=== PATIENT | male | born 1990 | race Caucasian/White ===

== ENCOUNTER 2018-01-18 09:52 | Inpatient (IN) | payer OTHER ==
[2018-01-18 10:49] VITALS: BMI 30.6
--- NOTE | 2018-01-18 13:15 | HP ---
CIWA Score - CIWA Score Nausea/Vomitin Muscle Tremors: 3 Anxiety: 3 Agitation: 2 Paroxysmal Sweats: 3 Orientation: 0-Oriented Tacttile Disturbances: 0-None Auditory Disturbances: 0-None Visual Disturbances: 0-None Headache: 0-None Present CIWA-Ar Total Score: 14 Admission ROS S - HPI Chief Complaint: "Alcohol is becoming a problem for me, I need help stopping it" Allergies/Adverse Reactions: Allergies Allergy/AdvReac Type Severity Reaction Status Date / Time No Known Allergies Allergy Verified 01/18/18 12:18 History of Present Illness: 27 y/o male with 5 year history of alcohol dependence presents here to requesting alcohol detox. This is pt's first visit to [facility] detox, states his only episode with detox was at [facility]. stated he is here because he started to drink after he left the place. Denies recent ED visit for alcohol intox, states he is homeless and self- referred. Denies any med hx, takes Welbutrin for Depression, last taken a week ago s/p "I ran out". Denies previous nor curent SI. Exam Limitations: No Limitations - Ebola screening Have you traveled outside of the country in the last 21 days: No (N) Have you had contact with anyone from an Ebola affected area: No Have you been sick,other than usual withdrawal symptoms: No Do you have a fever: No - Review of Systems Constitutional: No Symptoms Reported EENT: reports: Recent change in vision (Far sightedness - wears glasses) Respiratory: reports: No Symptoms reported Cardiac: reports: No Symptoms Reported GI: reports: No Symptoms Reported : reports: No Symptoms Reported Musculoskeletal: reports: No Symptoms Reported Integumentary: reports: Dryness, Pruritus, Other (states he has heat rash) Neuro: reports: No Symptoms reported Endocrine: reports: No Symptoms Reported Hematology: reports: No Symptoms Reported Psychiatric: reports: Anxious, Depressed (denies SI) Other Systems: Reviewed and Negative Patient History - Patient Medical History Hx Anemia: No Hx Asthma: Yes (On albuterol) Hx Chronic Obstructive Pulmonary Disease (COPD): No Hx Cancer: No Hx Cardiac Disorders: No Hx Congestive Heart Failure: No Hx Hypertension: No Hx Hypercholesterolemia: No Hx Pacemaker: No HX Cerebrovascular Accident: No Hx Seizures: No Hx Dementia: No Hx Diabetes: No Hx Gastrointestinal Disorders: Yes (GERD Tx with OTC PRN) Hx Liver Disease: No Hx Genitourinary Disorders: No Hx Sexually Transmitted Disorders: No Hx Renal Disease (ESRD): No Hx Thyroid Disease: No Hx Human Immunodeficiency Virus (HIV): No (Last tested last month) Hx Hepatitis C: No Hx Depression: Yes (On Wellbutrin) Hx Suicide Attempt: No (denies) Hx Bipolar Disorder: No Hx Schizophrenia: No - Patient Surgical History Past Surgical History: No - PPD History Previous Implant?: Yes Documented Results: Negative w/o proof Implanted On Prior [facility] Admission?: No PPD to be Administered?: Yes - Reproductive History Patient is a Female of Child Bearing Age (11 -55 yrs old): No - Smoking Cessation Smoking history: Current every day smoker Have you smoked in the past 12 months: Yes Aproximately how many cigarettes per day: 10 Hx Chewing Tobacco Use: No Initiated information on smoking cessation: Yes 'Breaking Loose' booklet given: 01/18/18 - Substance & Tx. History Hx Alcohol Use: Yes Hx Substance Use: No Substance Use Type: Alcohol Hx Substance Use Treatment: Yes ([facility] - 01/2018) - Substances Abused Alcohol Route: Oral Frequency: Daily Amount used: 2 40oz Beer, 1/2 pint liquor ocassionally Age of first use: 15 Date of Last Use: 01/17/18 Family Disease History - Family Disease History Family Disease History: Other: Father (heroin, ) Admission Physical Exam BHS - Vital Signs Vital Signs: Vital Signs - 24 hr 01/18/18 10:46 Temperature 97.6 F Pulse Rate 92 H Respiratory 20 Rate Blood Pressure 130/81 - Physical General Appearance: Yes: Mild Distress, Anxious HEENTM: Yes: Other (wears glasses - on him) Respiratory: Yes: Lungs Clear, No Respiratory Distress Neck: Yes: No masses,lesions,Nodules, Trachea in good position Breast: Yes: Breast Exam Deferred Cardiology: Yes: Regular Rate Abdominal: Yes: Non Tender, Distended Genitourinary: Yes: Within Normal Limits Back: Yes: Normal Inspection Musculoskeletal: Yes: full range of Motion, Gait Steady Extremities: Yes: Normal Capillary Refill, Normal Inspection Neurological: Yes: Within Normal Limits Integumentary: Yes: Other (dry, scaly, itchy skin) - Diagnostic (1) Uncomplicated alcohol dependence Current Visit: Yes Status: Acute (2) Depression Current Visit: Yes Status: Suspected (3) Asthma Current Visit: Yes Status: Chronic (4) Nicotine dependence Current Visit: Yes Status: Chronic (5) Atopic dermatitis Current Visit: Yes Status: Chronic Cleared for Admission [facility] - Detox or Rehab [facility] Level of Care: Medically Managed Detox Regimen/Protocol: Librium S Breath Alcohol Content Breath Alcohol Content: 0.022 Urine Drug Screen - Results Drug Screen Negative: Yes
[2018-01-18] MEDS ORDERED: ALBUTEROL SO4 8 GM HFA INHALER IH PRN (13:34)
[2018-01-18] MEDS ORDERED: COLLOIDAL OATMEAL 1 BAR EACH TP PRN (13:35)
[2018-01-18] MEDS ORDERED: MAGNESIUM CITRATE 300 ML BOTTLE PO PRN (13:36)
[2018-01-18] MEDS ORDERED: IBUPROFEN 400 MG TABLET (FP) PO PRN (13:36)
[2018-01-18] MEDS ORDERED: ACETAMINOPHEN 325 MG TABLET (FP) PO PRN (13:36)
[2018-01-18] MEDS ORDERED: hydrOXYzine PAMOATE 50 MG CAPSULE (FP) PO PRN (13:36)
[2018-01-18] MEDS ORDERED: guaiFENesin/D-METHORPHAN HB 10 ML UNIT-DOSE CUPS PO PRN (13:36)
[2018-01-18] MEDS ORDERED: P-EPHED 60MG/TRIPROLIDI 2.5MG TABLET PO PRN (13:36)
[2018-01-18] MEDS ORDERED: chlordiazePOXIDE HCL 25 MG CAPSULE PO ONE (13:36)
[2018-01-18] MEDS ORDERED: chlordiazePOXIDE HCL 25 MG CAPSULE PO PRN (13:36)
[2018-01-18] MEDS ORDERED: MAGNESIUM HYDROX 2400MG/30ML ORAL SUSPENSION 30 ML CUP PO PRN (13:36)
[2018-01-18] MEDS ORDERED: MENTHOL/PHENOL 1 EACH UD MM PRN (13:36)
[2018-01-18] MEDS ORDERED: LOPERAMIDE HCL 2 MG CAPSULE PO PRN (13:36)
[2018-01-18] MEDS ORDERED: BACITRACIN 0.9 GM PACKET TP SCH (13:45)
[2018-01-18] MEDS: NICOTINE 21 MG/24 HOURS TOPICAL PATCH TD SCH (14:50)
[2018-01-18] MEDS: HYDROCORTISONE 1% TOPICAL CREAM 30 GM TUBE TP SCH ×2 (15:28→22:19)
[2018-01-18] MEDS: chlordiazePOXIDE HCL 25 MG CAPSULE PO SCH ×2 (17:57→22:17)
[2018-01-18 19:30] LABS: URINE APPEARANCE CLEAR; URINE BILIRUBIN NEGATIVE (<2.0 mg/dL); URINE COLOR LTYELLOW; URINE GLUCOSE (UA) NEGATIVE (NEGATIVE); URINE KETONE TRACE (NEGATIVE); URINE LEUK ESTERASE NEGATIVE (NEGATIVE); URINE NITRITE NEGATIVE (NEGATIVE); URINE PROTEIN NEGATIVE (NEGATIVE); URINE UROBILINOGEN NEGATIVE mg/dL (0.2-1.0)
[2018-01-18] MEDS: MELATONIN 5 MG TABLETS PO PRN (22:17)
[2018-01-18] MEDS: THIAMINE HCL 100 MG TABLET (FP) PO SCH (22:17)
[2018-01-19] MEDS: chlordiazePOXIDE HCL 25 MG CAPSULE PO SCH ×4 (05:40→22:21)
[2018-01-19 09:43] LABS: HEMATOCRIT 45.4 % (35.4-49); HEMOGLOBIN 15.4 GM/dL (11.7-16.9); MCH 30.5 pg (25.7-33.7); MCHC 33.9 g/dl (32.0-35.9); MEAN CELL VOLUME 90.2 fl (80-96); MEAN PLT VOLUME 9.7 fl (7.5-11.1); PLATELET COUNT 244 K/MM3 (134-434); RBC 5.04 M/mm3 (4.00-5.60); WHITE BLOOD COUNT 5.7 K/mm3 (4.0-10.0)
[2018-01-19] MEDS: HYDROCORTISONE 1% TOPICAL CREAM 30 GM TUBE TP SCH ×2 (10:14→22:23)
[2018-01-19] MEDS: NICOTINE 21 MG/24 HOURS TOPICAL PATCH TD SCH (10:14)
[2018-01-19] MEDS: PRENATAL VITAMINS W/ FOLIC ACID TABLET (FP) PO SCH (10:14)
[2018-01-19 10:27] LABS: CHLORIDE 107 mmol/L (98-107); POTASSIUM 4.2 mmol/L (3.5-5.1); SODIUM 139 mmol/L (136-145)
[2018-01-19 10:47] LABS: ALBUMIN 3.6 g/dl (3.4-5.0); ALK PHOS 65 U/L (45-117); ANION GAP 9 (8-16); BILIRUBIN,TOTAL 0.5 mg/dL (0.2-1.0); BLOOD UREA NITROGEN 11 mg/dL (7-18); CO2 23 mmol/L (21-32); GLUCOSE,RANDOM 83 mg/dL (74-106); SGOT/AST 16 U/L (15-37); SGPT/ALT 33 U/L (12-78); TOT PROT 6.9 g/dl (6.4-8.2)
[2018-01-19] MEDS ORDERED: PNEUMOC 13-VAL CONJ-DIP CRM/PF 0.5 ML DISP.SYRIN IM ONE (12:00)
--- NOTE | 2018-01-19 12:44 | CONSULT ---
[facility] Psychiatric Consult - Data Date of interview: 01/19/18 Admission source: [facility] Identifying data: First admission to [facility] for this 27 y/o male seeking detox treatment on for alcohol and cannabis dependence.Patient is single,father of one,homeless,unemployed and supported on Public Assistance. Substance Abuse History: Confirmed by the patient in this session.Smoking history: Current every day smoker. Have you smoked in the past 12 months: Yes. Aproximately how many cigarettes per day: 10. Hx Chewing Tobacco Use: No. Initiated information on smoking cessation: Yes. 'Breaking Loose' booklet given : 01/18/18. - Substance & Tx. History. Hx Alcohol Use: Yes. Hx Substance Use : No. Substance Use Type: Alcohol. Hx Substance Use Treatment: Yes ([facility] - 01/2018). - Substances Abused. Alcohol. Route: Oral. Frequency: Daily. Amount used: 2 40oz Beer, 1/2 pint liquor ocassionally. Age of first use: 15. Date of Last Use: 01/17/18 Medical History: GERD and bronchial asthma. Psychiatric History: Diagnosed with MDD and Anxiety Disorder.patient admits to one psychiatric hospitalization ([facility]) in 2004.Medicated with wellbutrin XL 300 mg/day.Non-adherent to his medication " for some time ".Sees a psychiatrist at the [facility] program in the [place].Mr Campbell denies history of suicide attempts. Physical/Sexual Abuse/Trauma History: Patient denies. Additional Comment: Drug Screen is negative. Mental Status Exam - Mental Status Exam Alert and Oriented to: Time, Place, Person Cognitive Function: Good Patient Appearance: Well Groomed Mood: Withdrawn Affect: Appropriate, Normal Range Patient Behavior: Fatigued, Appropriate, Cooperative Speech Pattern: Clear Voice Loudness: Normal Thought Process: Intact, Goal Oriented Thought Disorder: Not Present Hallucinations: Denies Suicidal Ideation: Denies Homicidal Ideation: Denies Insight/Judgement: Poor Sleep: Well Appetite: Good Muscle strength/Tone: Normal Gait/Station: Normal Psychiatric Findings - Problem List ([place] 1, 2,3) (1) Uncomplicated alcohol dependence Current Visit: Yes Status: Acute (2) Nicotine dependence Current Visit: Yes Status: Acute (3) Depressive disorder Current Visit: Yes Status: Chronic Comment: As per self-report.On medications.Followed at [facility] in the [place]. - Initial Treatment Plan Initial Treatment Plan: Psychoeducation.Sleep hygiene.Detoxification.Will resume wellbutrin XL 150 mg po daily (reduced dose).Made aware of risk of seizures.Patient agrees to this careplan.Observation.
--- NOTE | 2018-01-19 13:36 | EKG ---
Test Reason : Blood Pressure : / mmHG Vent. Rate : 074 BPM Atrial Rate : 074 BPM P-R Int : 166 ms QRS Dur : 100 ms QT Int : 386 ms P-R-T Axes : 060 055 037 degrees QTc Int : 428 ms SINUS RHYTHM WITH MARKED SINUS ARRHYTHMIA OTHERWISE NORMAL ECG NO PREVIOUS ECGS AVAILABLE Confirmed by JJ MARTIN MD ([id number]) on 01/19/2018 1:36:28 PM Referred By: Confirmed By:JJ MARTIN MD
--- NOTE | 2018-01-19 14:27 | PN ---
[facility] CIWA - CIWA Score Nausea/Vomitin Muscle Tremors: 2 Anxiety: 3 Agitation: 3 Paroxysmal Sweats: 3 Orientation: 0-Oriented Tacttile Disturbances: 0-None Auditory Disturbances: 0-None Visual Disturbances: 0-None Headache: 0-None Present CIWA-Ar Total Score: 14 S Progress Note (SOAP) Subjective: sweats shakes sleep disturbance itchy Objective: 01/19/18 14:24 A & O x 3 gait steady Vital Signs Temperature 97.1 F L 01/19/18 10:47 Pulse Rate 93 H 01/19/18 10:47 Respiratory Rate 20 01/19/18 10:47 Blood Pressure 113/69 01/19/18 10:47 O2 Sat by Pulse Oximetry (%) Laboratory Last Values WBC 5.7 K/mm3 (4.0-10.0) 01/19/18 07:00 RBC 5.04 M/mm3 (4.00-5.60) 01/19/18 07:00 Hgb 15.4 GM/dL (11.7-16.9) 01/19/18 07:00 Hct 45.4 % (35.4-49) 01/19/18 07:00 MCV 90.2 fl (80-96) 01/19/18 07:00 MCH 30.5 pg (25.7-33.7) 01/19/18 07:00 MCHC 33.9 g/dl (32.0-35.9) 01/19/18 07:00 RDW 13.0 % (11.9-15.9) 01/19/18 07:00 Plt Count 244 K/MM3 (134-434) 01/19/18 07:00 MPV 9.7 fl (7.5-11.1) 01/19/18 07:00 Sodium 139 mmol/L (136-145) 01/19/18 07:30 Potassium 4.2 mmol/L (3.5-5.1) 01/19/18 07:30 Chloride 107 mmol/L (98-107) 01/19/18 07:30 Carbon Dioxide 23 mmol/L (21-32) 01/19/18 07:30 Anion Gap 9 (8-16) 01/19/18 07:30 BUN 11 mg/dL (7-18) 01/19/18 07:30 Creatinine 1.0 mg/dL (0.7-1.3) 01/19/18 07:30 Creat Clearance w eGFR > 60 (>60) 01/19/18 07:30 Random Glucose 83 mg/dL (74-106) 01/19/18 07:30 Calcium 9.0 mg/dL (8.5-10.1) 01/19/18 07:30 Total Bilirubin 0.5 mg/dL (0.2-1.0) 01/19/18 07:30 AST 16 U/L (15-37) 01/19/18 07:30 ALT 33 U/L (12-78) 01/19/18 07:30 Alkaline Phosphatase 65 U/L (45-117) 01/19/18 07:30 Total Protein 6.9 g/dl (6.4-8.2) 01/19/18 07:30 Albumin 3.6 g/dl (3.4-5.0) 01/19/18 07:30 Urine Color Ltyellow 01/18/18 15:16 Urine Appearance Clear 01/18/18 15:16 Urine pH 5.0 (5.0-8.0) 01/18/18 15:16 Ur Specific [place] 1.023 (1.001-1.035) 01/18/18 15:16 Urine Protein Negative (NEGATIVE) 01/18/18 15:16 Urine Glucose (UA) Negative (NEGATIVE) 01/18/18 15:16 Urine Ketones Trace (NEGATIVE) H 01/18/18 15:16 Urine Blood Negative (NEGATIVE) 01/18/18 15:16 Urine Nitrite Negative (NEGATIVE) 01/18/18 15:16 Urine Bilirubin Negative (<2.0 mg/dL) 01/18/18 15:16 Urine Urobilinogen Negative mg/dL (0.2-1.0) 01/18/18 15:16 Ur Leukocyte Esterase Negative (NEGATIVE) 01/18/18 15:16 RPR Titer Nonreactive (NONREACTIVE) 01/19/18 07:00 Labs noted Assessment: 01/19/18 14:27 withdrawal sx Plan: continue detox increase water hydration
[2018-01-19] MEDS: MELATONIN 5 MG TABLETS PO PRN (22:21)
[2018-01-19] MEDS: THIAMINE HCL 100 MG TABLET (FP) PO SCH (22:21)
[2018-01-20] MEDS: chlordiazePOXIDE HCL 25 MG CAPSULE PO SCH ×2 (05:15→10:16)
[2018-01-20] MEDS: NICOTINE 21 MG/24 HOURS TOPICAL PATCH TD SCH (10:15)
[2018-01-20] MEDS: PRENATAL VITAMINS W/ FOLIC ACID TABLET (FP) PO SCH (10:15)
[2018-01-20] MEDS: LORATADINE 10 MG TABLET PO SCH (10:18)
[2018-01-20] MEDS: HYDROCORTISONE 1% TOPICAL CREAM 30 GM TUBE TP SCH (10:18)
--- NOTE | 2018-01-20 12:40 | PN ---
S CIWA - CIWA Score Nausea/Vomitin-No Nausea/No Vomiting Muscle Tremors: None Anxiety: 4-Mod. Anxious/Guarded Agitation: 2 Paroxysmal Sweats: 3 Orientation: 0-Oriented Tacttile Disturbances: 3-Moderate Itch/Numb/Burn Auditory Disturbances: 0-None Visual Disturbances: 2-Mild Sensitivity Headache: 0-None Present CIWA-Ar Total Score: 14 BHS Progress Note (SOAP) Subjective: Sweating, Anxious, Itching. Objective: PATIENT A & O X 3, OBSERVED AMBULATING ON UNIT. NO ACUTE DISTRESS. 01/20/18 12:37 Vital Signs Temperature 97.3 F L 01/20/18 09:28 Pulse Rate 86 01/20/18 09:28 Respiratory Rate 18 01/20/18 09:28 Blood Pressure 106/64 01/20/18 09:28 O2 Sat by Pulse Oximetry (%) Laboratory Tests 01/18/18 01/19/18 01/19/18 15:16 07:00 07:00 WBC 5.7 RBC 5.04 Hgb 15.4 Hct 45.4 MCV 90.2 MCH 30.5 MCHC 33.9 RDW 13.0 Plt Count 244 MPV 9.7 Sodium Potassium Chloride Carbon Dioxide Anion Gap BUN Creatinine Creat Clearance w eGFR Random Glucose Calcium Total Bilirubin AST ALT Alkaline Phosphatase Total Protein Albumin Urine Color Ltyellow Urine Appearance Clear Urine pH 5.0 Ur Specific [place] 1.023 Urine Protein Negative Urine Glucose (UA) Negative Urine Ketones Trace H Urine Blood Negative Urine Nitrite Negative Urine Bilirubin Negative Urine Urobilinogen Negative Ur Leukocyte Esterase Negative RPR Titer Nonreactive 01/19/18 07:30 WBC RBC Hgb Hct MCV MCH MCHC RDW Plt Count MPV Sodium 139 Potassium 4.2 Chloride 107 Carbon Dioxide 23 Anion Gap 9 BUN 11 Creatinine 1.0 Creat Clearance w eGFR > 60 Random Glucose 83 Calcium 9.0 Total Bilirubin 0.5 AST 16 ALT 33 Alkaline Phosphatase 65 Total Protein 6.9 Albumin 3.6 Urine Color Urine Appearance Urine pH Ur Specific [place] Urine Protein Urine Glucose (UA) Urine Ketones Urine Blood Urine Nitrite Urine Bilirubin Urine Urobilinogen Ur Leukocyte Esterase RPR Titer LABS NOTED. Assessment: 01/20/18 12:39 WITHDRAWAL SYMPTOMS. Plan: CONTINUE DETOX. INCREASE DAILY PO FLUID INTAKE. TOPICAL BENADRYL CREAM FOR ITCHING.
[2018-01-20] MEDS: MAG HYDROX/AL HYDROX/SIMETH 30 ML UNIT-DOSE CUP PO PRN ×2 (14:52→23:41)
[2018-01-20] MEDS: chlordiazePOXIDE 5 MG CAPSULE PO SCH ×2 (17:15→22:11)
[2018-01-20] MEDS: MELATONIN 5 MG TABLETS PO PRN (22:11)
[2018-01-20] MEDS: THIAMINE HCL 100 MG TABLET (FP) PO SCH (22:11)
[2018-01-21] MEDS: chlordiazePOXIDE 5 MG CAPSULE PO SCH ×2 (05:13→10:27)
[2018-01-21] MEDS: MAG HYDROX/AL HYDROX/SIMETH 30 ML UNIT-DOSE CUP PO PRN ×3 (05:14→18:20)
[2018-01-21] MEDS: LORATADINE 10 MG TABLET PO SCH (10:27)
[2018-01-21] MEDS: PRENATAL VITAMINS W/ FOLIC ACID TABLET (FP) PO SCH (10:27)
[2018-01-21] MEDS: NICOTINE 21 MG/24 HOURS TOPICAL PATCH TD SCH (10:27)
--- NOTE | 2018-01-21 14:08 | PN ---
BHS Progress Note (SOAP) Subjective: Constipation, Itching (Patient Reports that Benadryl Cream has been helpful for itching on forearms thus far). Objective: PATIENT A & O X 3, OBSERVED AMBULATING ON UNIT. NO ACUTE DISTRESS. 01/21/18 14:07 Vital Signs Temperature 98.5 F 01/21/18 13:54 Pulse Rate 86 01/21/18 13:54 Respiratory Rate 20 01/21/18 13:54 Blood Pressure 98/60 01/21/18 13:54 O2 Sat by Pulse Oximetry (%) Laboratory Tests 01/18/18 01/19/18 01/19/18 15:16 07:00 07:00 WBC 5.7 RBC 5.04 Hgb 15.4 Hct 45.4 MCV 90.2 MCH 30.5 MCHC 33.9 RDW 13.0 Plt Count 244 MPV 9.7 Sodium Potassium Chloride Carbon Dioxide Anion Gap BUN Creatinine Creat Clearance w eGFR Random Glucose Calcium Total Bilirubin AST ALT Alkaline Phosphatase Total Protein Albumin Urine Color Ltyellow Urine Appearance Clear Urine pH 5.0 Ur Specific [place] 1.023 Urine Protein Negative Urine Glucose (UA) Negative Urine Ketones Trace H Urine Blood Negative Urine Nitrite Negative Urine Bilirubin Negative Urine Urobilinogen Negative Ur Leukocyte Esterase Negative RPR Titer Nonreactive 01/19/18 07:30 WBC RBC Hgb Hct MCV MCH MCHC RDW Plt Count MPV Sodium 139 Potassium 4.2 Chloride 107 Carbon Dioxide 23 Anion Gap 9 BUN 11 Creatinine 1.0 Creat Clearance w eGFR > 60 Random Glucose 83 Calcium 9.0 Total Bilirubin 0.5 AST 16 ALT 33 Alkaline Phosphatase 65 Total Protein 6.9 Albumin 3.6 Urine Color Urine Appearance Urine pH Ur Specific [place] Urine Protein Urine Glucose (UA) Urine Ketones Urine Blood Urine Nitrite Urine Bilirubin Urine Urobilinogen Ur Leukocyte Esterase RPR Titer LABS NOTED. Assessment: 01/21/18 14:07 WITHDRAWAL SYMPTOMS. Plan: CONTINUE DETOX. INCREASE DAILY PO FLUID INTAKE. PRN MOM FOR CONSTIPATION. PATIENT SCHEDULED FOR D/C TOMORROW.
[2018-01-21] MEDS: chlordiazePOXIDE HCL 10 MG CAPSULE PO SCH ×2 (17:24→22:17)
[2018-01-21] MEDS: THIAMINE HCL 100 MG TABLET (FP) PO SCH (22:16)
[2018-01-21] MEDS: MELATONIN 5 MG TABLETS PO PRN (22:17)
[2018-01-22] MEDS: chlordiazePOXIDE HCL 10 MG CAPSULE PO SCH (05:10)
[2018-01-22] MEDS: LORATADINE 10 MG TABLET PO SCH (09:23)
[2018-01-22 10:19] VITALS: BP 116/77; PULSE 108; TEMP 97.3
--- NOTE | 2018-01-22 15:03 | PN ---
BHS Progress Note (SOAP) Subjective: Patient denies current Detox symptoms and reports that he feels well overall. Objective: PATIENT A & O X 3, OBSERVED AMBULATING ON UNIT. NO ACUTE DISTRESS. 01/22/18 15:02 Vital Signs Temperature 97.3 F L 01/22/18 09:00 Pulse Rate 108 H 01/22/18 09:00 Respiratory Rate 20 01/22/18 09:00 Blood Pressure 116/77 01/22/18 09:00 O2 Sat by Pulse Oximetry (%) Laboratory Tests 01/18/18 01/19/18 01/19/18 15:16 07:00 07:00 WBC 5.7 RBC 5.04 Hgb 15.4 Hct 45.4 MCV 90.2 MCH 30.5 MCHC 33.9 RDW 13.0 Plt Count 244 MPV 9.7 Sodium Potassium Chloride Carbon Dioxide Anion Gap BUN Creatinine Creat Clearance w eGFR Random Glucose Calcium Total Bilirubin AST ALT Alkaline Phosphatase Total Protein Albumin Urine Color Ltyellow Urine Appearance Clear Urine pH 5.0 Ur Specific [place] 1.023 Urine Protein Negative Urine Glucose (UA) Negative Urine Ketones Trace H Urine Blood Negative Urine Nitrite Negative Urine Bilirubin Negative Urine Urobilinogen Negative Ur Leukocyte Esterase Negative RPR Titer Nonreactive 01/19/18 07:30 WBC RBC Hgb Hct MCV MCH MCHC RDW Plt Count MPV Sodium 139 Potassium 4.2 Chloride 107 Carbon Dioxide 23 Anion Gap 9 BUN 11 Creatinine 1.0 Creat Clearance w eGFR > 60 Random Glucose 83 Calcium 9.0 Total Bilirubin 0.5 AST 16 ALT 33 Alkaline Phosphatase 65 Total Protein 6.9 Albumin 3.6 Urine Color Urine Appearance Urine pH Ur Specific [place] Urine Protein Urine Glucose (UA) Urine Ketones Urine Blood Urine Nitrite Urine Bilirubin Urine Urobilinogen Ur Leukocyte Esterase RPR Titer LABS NOTED. Assessment: 01/22/18 15:02 COMPLETION OF DETOX REGIMEN. 01/22/18 15:03 Plan: PATIENT SCHEDULED FOR DISCHARGE FROM DETOX UNIT TODAY.
--- NOTE | 2018-01-22 15:07 | DS ---
[facility] Detox Discharge Summary Admission Date: 01/18/18 Discharge Date: 01/22/18 - History Present History: Alcohol Dependence, Cocaine Dependence Additional Comments: PATIENT WILL RETURN HOME FOR A DAYS TO ATTEND TO PERSONAL / FAMILY ISSUES, THEN WILL RETURN TO APPLY FOR ADMISSION TO [facility]. PATIENT WAS DISCHARGED FROM DETOX UNIT IN STABLE MEDICAL CONDITION. Pertinent Past History: Nicotine Dependence, Depression, Asthma, Atopic Dermatitis. - Physical Exam Results Vital Signs: Vital Signs Temperature 97.3 F L 01/22/18 09:00 Pulse Rate 108 H 01/22/18 09:00 Respiratory Rate 20 01/22/18 09:00 Blood Pressure 116/77 01/22/18 09:00 O2 Sat by Pulse Oximetry (%) Pertinent Admission Physical Exam Findings: WITHDRAWAL SYMPTOMS. Laboratory Tests 01/18/18 01/19/18 01/19/18:16 07:00 07:00 WBC 5.7 RBC 5.04 Hgb 15.4 Hct 45.4 MCV 90.2 MCH 30.5 MCHC 33.9 RDW 13.0 Plt Count 244 MPV 9.7 Sodium Potassium Chloride Carbon Dioxide Anion Gap BUN Creatinine Creat Clearance w eGFR Random Glucose Calcium Total Bilirubin AST ALT Alkaline Phosphatase Total Protein Albumin Urine Color Ltyellow Urine Appearance Clear Urine pH 5.0 Ur Specific [place] 1.023 Urine Protein Negative Urine Glucose (UA) Negative Urine Ketones Trace H Urine Blood Negative Urine Nitrite Negative Urine Bilirubin Negative Urine Urobilinogen Negative Ur Leukocyte Esterase Negative RPR Titer Nonreactive 01/19/18 07:30 WBC RBC Hgb Hct MCV MCH MCHC RDW Plt Count MPV Sodium 139 Potassium 4.2 Chloride 107 Carbon Dioxide 23 Anion Gap 9 BUN 11 Creatinine 1.0 Creat Clearance w eGFR > 60 Random Glucose 83 Calcium 9.0 Total Bilirubin 0.5 AST 16 ALT 33 Alkaline Phosphatase 65 Total Protein 6.9 Albumin 3.6 Urine Color Urine Appearance Urine pH Ur Specific [place] Urine Protein Urine Glucose (UA) Urine Ketones Urine Blood Urine Nitrite Urine Bilirubin Urine Urobilinogen Ur Leukocyte Esterase RPR Titer LABS NOTED. - Treatment Hospital Course: Detox Protocol Followed, Detoxed Safely, Responded well, Discharged Condition Good, Rehab Referral Accepted Patient has Accepted a Re[facility] Referral to[facility] ([facility]) . - Medication Discharge Medications: Ambulatory Orders Albuterol Sulfate Inhaler - [Ventolin Hfa Inhaler -] 2 inh PO Q4H PRN 01/18/18 Bupropion HCl [Wellbutrin Xl] 300 mg PO 01/18/18 - Diagnosis (1) Alcohol dependence with uncomplicated withdrawal Status: Acute (2) Nicotine dependence Status: Acute Qualifiers: Nicotine product type: cigarettes Substance use status: uncomplicated Qualified Code(s): F17.210 - Nicotine dependence, cigarettes, uncomplicated (3) Asthma Status: Chronic Qualifiers: Asthma severity: mild Asthma persistence: intermittent Asthma complication type: uncomplicated Qualified Code(s): J45.20 - Mild intermittent asthma, uncomplicated (4) Atopic dermatitis Status: Chronic Qualifiers: Atopic dermatitis type: unspecified Qualified Code(s): L20.9 - Atopic dermatitis, unspecified (5) Depression Status: Suspected Qualifiers: Depression Type: unspecified Qualified Code(s): F32.9 - Major depressive disorder, single episode, unspecified - AMA Did Patient Leave Against Medical Advice: No
== END 2018-01-22 09:25 | disposition home or self-care (01) | DRG 775 ==
LOC: YASAS 09:52 → Y3N 13:37
PROVIDERS: ADMIT Surgery; ATTEND Surgery
PROC: HZ2ZZZZ Detoxification Services for Substance Abuse Treatment (ICD-10-PCS; principal; 2018-01-18)
DX: F10.230 Alcohol dependence with withdrawal, uncomplicated (principal); F17.210 Nicotine dependence, cigarettes, uncomplicated; F32.9 Major depressive disorder, single episode, unspecified; J45.20 Mild intermittent asthma, uncomplicated; K21.9 Gastro-esophageal reflux disease without esophagitis; L20.9 Atopic dermatitis, unspecified
CPT/HCPCS: 36415; 80053; 81003; 85027; 86593; 93005; 93010

== ENCOUNTER 2020-12-29 11:08 | Inpatient (IN) | payer OTHER ==
[2020-12-29 11:37] VITALS: BMI 36.1
[2020-12-29] MEDS ORDERED: METHOCARBAMOL 500 MG TABLET PO PRN (12:24)
[2020-12-29] MEDS ORDERED: ONDANSETRON *ODT* 4 MG TABLET SL PRN (12:24)
[2020-12-29] MEDS ORDERED: diazePAM 5 MG TABLET PO PRN (12:24)
[2020-12-29] MEDS ORDERED: NICOTINE POLACRILEX 2 MG GUM BUC PRN (12:24)
[2020-12-29] MEDS ORDERED: ACETAMINOPHEN 325 MG TABLET (FP) PO PRN ×2 (12:24)
[2020-12-29] MEDS ORDERED: MAGNESIUM CITRATE 300 ML BOTTLE PO PRN (12:24)
[2020-12-29] MEDS ORDERED: BISMUTH SUBSALICYLATE 262 MG/15 ML BTL PO PRN (12:24)
[2020-12-29] MEDS ORDERED: IBUPROFEN 400 MG TABLET (FP) PO PRN (12:24)
[2020-12-29] MEDS ORDERED: MAGNESIUM HYDROX 2400MG/30ML ORAL SUSPENSION 30 ML CUP PO PRN (12:24)
[2020-12-29] MEDS ORDERED: MAG HYDROX/AL HYDROX/SIMETH 30 ML UNIT-DOSE CUP PO PRN (12:24)
[2020-12-29] MEDS ORDERED: MENTHOL/PHENOL 1 EACH UD MM PRN (12:24)
[2020-12-29] MEDS ORDERED: ALBUTEROL SO4 HFA INHALER IH PRN (12:25)
[2020-12-29] MEDS: NICOTINE 14 MG/24 HOURS TOPICAL PATCH TD SCH (13:33)
[2020-12-29] MEDS: diazePAM 5 MG TABLET PO SCH ×3 (13:34→22:17)
[2020-12-29] MEDS: PRENATAL VITAMINS W/ FOLIC ACID TABLET (FP) PO SCH (13:34)
[2020-12-29] MEDS: hydrOXYzine PAMOATE 25 MG CAPSULE (FP) PO SCH ×3 (13:35→22:17)
[2020-12-29 15:13] LABS: HEMATOCRIT 44.9 % (35.4-49); HEMOGLOBIN 15.2 GM/dL (11.7-16.9); MCH 30.8 pg (25.7-33.7); MCHC 33.9 g/dl (32.0-35.9); MEAN CELL VOLUME 90.9 fl (80-96); MEAN PLT VOLUME 10.2 fl (7.5-11.1); PLATELET COUNT 178 10^3/uL (134-434); RBC 4.93 M/mm3 (4.00-5.60); RDW 13.3 % (11.9-15.9); WHITE BLOOD COUNT 6.2 K/mm3 (4.0-10.0)
[2020-12-29 15:43] LABS: ALBUMIN 3.5 g/dl (3.4-5.0); BLOOD UREA NITROGEN 12.8 mg/dL (7-18); CALCIUM 9.3 mg/dL (8.5-10.1)
[2020-12-29 15:47] LABS: CREATININE 1.1 mg/dL (0.55-1.3)
[2020-12-29 15:48] LABS: BILIRUBIN,TOTAL 0.4 mg/dL (0.2-1); TOT PROT 6.7 g/dl (6.4-8.2)
[2020-12-29 16:14] LABS: HIV INTERPRETATION NEGATIVE (NEGATIVE)
[2020-12-29] MEDS: MELATONIN 5 MG TABLETS PO SCH (22:17)
[2020-12-29] MEDS: THIAMINE HCL 100 MG TABLET (FP) PO SCH (22:17)
[2020-12-30] MEDS: hydrOXYzine PAMOATE 25 MG CAPSULE (FP) PO SCH ×5 (05:13→22:22)
[2020-12-30] MEDS: diazePAM 5 MG TABLET PO SCH ×4 (05:13→22:22)
[2020-12-30] MEDS: PRENATAL VITAMINS W/ FOLIC ACID TABLET (FP) PO SCH (10:16)
[2020-12-30] MEDS: NICOTINE 14 MG/24 HOURS TOPICAL PATCH TD SCH (10:16)
[2020-12-30] MEDS: MELATONIN 5 MG TABLETS PO SCH (22:22)
[2020-12-30] MEDS: THIAMINE HCL 100 MG TABLET (FP) PO SCH (22:22)
[2020-12-31] MEDS: hydrOXYzine PAMOATE 25 MG CAPSULE (FP) PO SCH ×5 (05:53→22:27)
[2020-12-31] MEDS: diazePAM 5 MG TABLET PO SCH ×3 (05:54→22:26)
[2020-12-31] MEDS: NICOTINE 14 MG/24 HOURS TOPICAL PATCH TD SCH (10:08)
[2020-12-31] MEDS: PRENATAL VITAMINS W/ FOLIC ACID TABLET (FP) PO SCH (10:08)
[2020-12-31] MEDS: THIAMINE HCL 100 MG TABLET (FP) PO SCH (22:27)
[2020-12-31] MEDS: MELATONIN 5 MG TABLETS PO SCH (22:27)
[2021-01-01] MEDS: hydrOXYzine PAMOATE 25 MG CAPSULE (FP) PO SCH ×5 (05:15→22:13)
[2021-01-01] MEDS: diazePAM 5 MG TABLET PO SCH ×2 (05:15→17:36)
[2021-01-01] MEDS: NICOTINE 14 MG/24 HOURS TOPICAL PATCH TD SCH (10:07)
[2021-01-01] MEDS: PRENATAL VITAMINS W/ FOLIC ACID TABLET (FP) PO SCH (10:07)
[2021-01-01] MEDS: THIAMINE HCL 100 MG TABLET (FP) PO SCH (22:13)
[2021-01-01] MEDS: MELATONIN 5 MG TABLETS PO SCH (22:13)
[2021-01-02] MEDS: hydrOXYzine PAMOATE 25 MG CAPSULE (FP) PO SCH (05:06)
[2021-01-02] MEDS ORDERED: diazePAM 5 MG TABLET PO ONE (06:00)
[2021-01-02 09:03] VITALS: BP 109/69; PULSE 89; TEMP 96.9
== END 2021-01-02 09:39 | disposition home or self-care (01) | DRG 774 ==
LOC: YASAS 11:08 → Y3N 11:52
PROVIDERS: ADMIT Allergy & Immunology; ATTEND Allergy & Immunology
PROC: HZ2ZZZZ Detoxification Services for Substance Abuse Treatment (ICD-10-PCS; principal; 2020-12-29)
DX: F10.230 Alcohol dependence with withdrawal, uncomplicated (principal); F14.20 Cocaine dependence, uncomplicated; F17.210 Nicotine dependence, cigarettes, uncomplicated; F19.24 Other psychoactive substance dependence with psychoactive substance-induced mood disorder; J45.20 Mild intermittent asthma, uncomplicated; K21.9 Gastro-esophageal reflux disease without esophagitis; L20.9 Atopic dermatitis, unspecified; E66.9 Obesity, unspecified; Z68.36 Body mass index [BMI] 36.0-36.9, adult; Z91.14 Patient's other noncompliance with medication regimen
CPT/HCPCS: 36415; 80053; 85027; 86780; 87389; C9803; U0003; U0005

== ENCOUNTER 2021-03-09 15:41 | Inpatient (IN) | payer OTHER ==
[2021-03-09 16:30] VITALS: BMI 34.1
[2021-03-09] MEDS ORDERED: diazePAM 5 MG TABLET PO PRN (16:52)
[2021-03-09] MEDS ORDERED: hydrOXYzine PAMOATE 25 MG CAPSULE (FP) PO PRN (16:53)
[2021-03-09] MEDS ORDERED: IBUPROFEN 400 MG TABLET (FP) PO PRN (16:53)
[2021-03-09] MEDS ORDERED: MAG HYDROX/AL HYDROX/SIMETH 30 ML UNIT-DOSE CUP PO PRN (16:53)
[2021-03-09] MEDS ORDERED: ACETAMINOPHEN 325 MG TABLET (FP) PO PRN ×2 (16:53)
[2021-03-09] MEDS ORDERED: MENTHOL/PHENOL 1 EACH UD MM PRN (16:53)
[2021-03-09] MEDS ORDERED: MAGNESIUM HYDROX 2400MG/30ML ORAL SUSPENSION 30 ML CUP PO PRN (16:53)
[2021-03-09] MEDS ORDERED: MAGNESIUM CITRATE 300 ML BOTTLE PO PRN (16:53)
[2021-03-09] MEDS ORDERED: BISMUTH SUBSALICYLATE 524 MG/30 ML PO PRN (16:53)
[2021-03-09] MEDS ORDERED: METHOCARBAMOL 500 MG TABLET PO PRN (16:53)
[2021-03-09] MEDS ORDERED: ONDANSETRON *ODT* 4 MG TABLET SL PRN (16:53)
[2021-03-09] MEDS ORDERED: NICOTINE 10 MG CARTRIDGE (INHALER) IH PRN (16:53)
[2021-03-09] MEDS ORDERED: ALBUTEROL SO4 HFA INHALER IH PRN (16:56)
[2021-03-09] MEDS: diazePAM 5 MG TABLET PO SCH ×2 (22:10→22:37)
[2021-03-09] MEDS: MELATONIN 5 MG TABLETS PO SCH (22:37)
[2021-03-09] MEDS: THIAMINE HCL 100 MG TABLET (FP) PO SCH (22:37)
[2021-03-10] MEDS: diazePAM 5 MG TABLET PO SCH ×4 (05:22→22:21)
[2021-03-10] MEDS: PRENATAL VITAMINS W/ FOLIC ACID TABLET (FP) PO SCH (11:14)
[2021-03-10 15:26] LABS: HEMATOCRIT 42.5 % (35.4-49); HEMOGLOBIN 14.6 GM/dL (11.7-16.9); MCH 31.4 pg (25.7-33.7); MCHC 34.4 g/dl (32.0-35.9); MEAN CELL VOLUME 91.2 fl (80-96); MEAN PLT VOLUME 10.2 fl (7.5-11.1); PLATELET COUNT 134 10^3/uL (134-434); RBC 4.66 M/mm3 (4.00-5.60); RDW 13.8 % (11.9-15.9); WHITE BLOOD COUNT 5.7 K/mm3 (4.0-10.0)
[2021-03-10 15:28] LABS: BLOOD UREA NITROGEN 12.1 mg/dL (7-18); CALCIUM 8.6 mg/dL (8.5-10.1)
[2021-03-10 15:32] LABS: BILIRUBIN,TOTAL 0.7 mg/dL (0.2-1)
[2021-03-10 16:19] LABS: HIV INTERPRETATION NEGATIVE (NEGATIVE)
[2021-03-10] MEDS: THIAMINE HCL 100 MG TABLET (FP) PO SCH (22:20)
[2021-03-10] MEDS: MELATONIN 5 MG TABLETS PO SCH (22:20)
[2021-03-11] MEDS: diazePAM 5 MG TABLET PO SCH ×3 (06:24→22:34)
[2021-03-11] MEDS: PRENATAL VITAMINS W/ FOLIC ACID TABLET (FP) PO SCH (11:19)
[2021-03-11] MEDS: MELATONIN 5 MG TABLETS PO SCH (22:34)
[2021-03-11] MEDS: THIAMINE HCL 100 MG TABLET (FP) PO SCH (22:34)
[2021-03-12] MEDS: diazePAM 5 MG TABLET PO SCH ×2 (07:10→18:10)
[2021-03-12] MEDS: PRENATAL VITAMINS W/ FOLIC ACID TABLET (FP) PO SCH (10:45)
[2021-03-12] MEDS ORDERED: HYDROCORTISONE 1% TOPICAL CREAM 30 GM TUBE TP PRN (13:13)
[2021-03-12] MEDS: THIAMINE HCL 100 MG TABLET (FP) PO SCH (22:23)
[2021-03-12] MEDS: MELATONIN 5 MG TABLETS PO SCH (22:23)
[2021-03-13] MEDS ORDERED: diazePAM 5 MG TABLET PO ONE (06:00)
[2021-03-13 09:34] VITALS: BP 117/70; PULSE 80; TEMP 96.8
== END 2021-03-13 10:49 | disposition home or self-care (01) | DRG 774 ==
LOC: YASAS 15:41 → Y6N 21:21 → Y3N 03-11 15:39
PROVIDERS: ADMIT Allergy & Immunology; ATTEND Allergy & Immunology
PROC: HZ2ZZZZ Detoxification Services for Substance Abuse Treatment (ICD-10-PCS; principal; 2021-03-09)
DX: F10.230 Alcohol dependence with withdrawal, uncomplicated (principal); F14.10 Cocaine abuse, uncomplicated; F17.210 Nicotine dependence, cigarettes, uncomplicated; J45.20 Mild intermittent asthma, uncomplicated; L20.9 Atopic dermatitis, unspecified
CPT/HCPCS: 36415; 80053; 85027; 86780; 87389; C9803; U0003; U0005

== ENCOUNTER 2021-07-24 12:00 | Inpatient (IN) | payer OTHER ==
[2021-07-24] MEDS ORDERED: MAGNESIUM HYDROX 2400MG/30ML ORAL SUSPENSION 30 ML CUP PO PRN (12:05)
[2021-07-24] MEDS ORDERED: IBUPROFEN 400 MG TABLET (FP) PO PRN (12:05)
[2021-07-24] MEDS ORDERED: BISMUTH SUBSALICYLATE 262 MG/15 ML BTL PO PRN (12:05)
[2021-07-24] MEDS ORDERED: NICOTINE 10 MG CARTRIDGE (INHALER) IH PRN (12:05)
[2021-07-24] MEDS ORDERED: MAG HYDROX/AL HYDROX/SIMETH 30 ML UNIT-DOSE CUP PO PRN (12:05)
[2021-07-24] MEDS ORDERED: MAGNESIUM CITRATE 300 ML BOTTLE PO PRN (12:05)
[2021-07-24] MEDS ORDERED: chlordiazePOXIDE HCL 25 MG CAPSULE PO PRN (12:05)
[2021-07-24] MEDS ORDERED: ONDANSETRON *ODT* 4 MG TABLET SL PRN (12:05)
[2021-07-24] MEDS ORDERED: MENTHOL/PHENOL 1 EACH UD MM PRN (12:05)
[2021-07-24] MEDS ORDERED: ACETAMINOPHEN 325 MG TABLET (FP) PO PRN ×2 (12:05)
[2021-07-24] MEDS ORDERED: ALBUTEROL SO4 HFA INHALER IH PRN (12:07)
[2021-07-24] MEDS: NICOTINE 14 MG/24 HOURS TOPICAL PATCH TD SCH (13:39)
[2021-07-24] MEDS: hydrOXYzine PAMOATE 25 MG CAPSULE (FP) PO SCH ×3 (13:39→22:47)
[2021-07-24] MEDS: PRENATAL VITAMINS W/ FOLIC ACID TABLET (FP) PO SCH (13:39)
[2021-07-24 16:37] VITALS: BMI 71.5
[2021-07-24] MEDS: chlordiazePOXIDE HCL 25 MG CAPSULE PO SCH ×2 (17:21→22:47)
[2021-07-24 17:33] LABS: HEMOGLOBIN 15.4 GM/dL (11.7-16.9); MCH 30.1 pg (25.7-33.7); MCHC 32.8 g/dl (32.0-35.9); MEAN CELL VOLUME 91.7 fl (80-96); MEAN PLT VOLUME 10.4 fl (7.5-11.1); PLATELET COUNT 224 10^3/uL (134-434); RBC 5.13 M/mm3 (4.00-5.60); RDW 13.6 % (11.9-15.9); WHITE BLOOD COUNT 5.4 K/mm3 (4.0-10.0)
[2021-07-24 18:00] LABS: BLOOD UREA NITROGEN 10.2 mg/dL (7-18); CALCIUM 9.2 mg/dL (8.5-10.1)
[2021-07-24 18:02] LABS: ALBUMIN 3.6 g/dl (3.4-5.0)
[2021-07-24 18:06] LABS: BILIRUBIN,TOTAL 0.2 mg/dL (0.2-1); TOT PROT 6.4 g/dl (6.4-8.2)
[2021-07-24] MEDS: MELATONIN 5 MG TABLETS PO SCH (22:47)
[2021-07-24] MEDS: THIAMINE HCL 100 MG TABLET (FP) PO SCH (22:47)
[2021-07-25] MEDS: hydrOXYzine PAMOATE 25 MG CAPSULE (FP) PO SCH ×5 (05:35→22:27)
[2021-07-25] MEDS: chlordiazePOXIDE HCL 25 MG CAPSULE PO SCH ×4 (05:35→22:27)
[2021-07-25] MEDS: NICOTINE 14 MG/24 HOURS TOPICAL PATCH TD SCH (10:32)
[2021-07-25] MEDS: buPROPion HCL 75 MG TABLET PO SCH (10:32)
[2021-07-25] MEDS: PRENATAL VITAMINS W/ FOLIC ACID TABLET (FP) PO SCH (10:32)
[2021-07-25] MEDS: MELATONIN 5 MG TABLETS PO SCH (22:27)
[2021-07-25] MEDS: THIAMINE HCL 100 MG TABLET (FP) PO SCH (22:28)
[2021-07-26] MEDS: hydrOXYzine PAMOATE 25 MG CAPSULE (FP) PO SCH ×5 (05:49→23:02)
[2021-07-26] MEDS: chlordiazePOXIDE HCL 25 MG CAPSULE PO SCH ×4 (05:49→23:01)
[2021-07-26] MEDS: buPROPion HCL 75 MG TABLET PO SCH (10:38)
[2021-07-26] MEDS: PRENATAL VITAMINS W/ FOLIC ACID TABLET (FP) PO SCH (10:38)
[2021-07-26] MEDS: METHOCARBAMOL 500 MG TABLET PO PRN (10:39)
[2021-07-26] MEDS: NICOTINE 14 MG/24 HOURS TOPICAL PATCH TD SCH (10:39)
[2021-07-26] MEDS: MELATONIN 5 MG TABLETS PO SCH (23:02)
[2021-07-26] MEDS: THIAMINE HCL 100 MG TABLET (FP) PO SCH (23:02)
[2021-07-27] MEDS ORDERED: chlordiazePOXIDE HCL 10 MG CAPSULE PO PRN
[2021-07-27] MEDS: hydrOXYzine PAMOATE 25 MG CAPSULE (FP) PO SCH ×5 (05:49→23:10)
[2021-07-27] MEDS: chlordiazePOXIDE HCL 10 MG CAPSULE PO SCH ×4 (05:50→23:11)
[2021-07-27] MEDS: PRENATAL VITAMINS W/ FOLIC ACID TABLET (FP) PO SCH (10:49)
[2021-07-27] MEDS: METHOCARBAMOL 500 MG TABLET PO PRN (10:50)
[2021-07-27] MEDS: buPROPion HCL 75 MG TABLET PO SCH (10:50)
[2021-07-27] MEDS: NICOTINE 14 MG/24 HOURS TOPICAL PATCH TD SCH (10:51)
[2021-07-27] MEDS: THIAMINE HCL 100 MG TABLET (FP) PO SCH (23:10)
[2021-07-27] MEDS: MELATONIN 5 MG TABLETS PO SCH (23:11)
[2021-07-28] MEDS: chlordiazePOXIDE HCL 10 MG CAPSULE PO SCH ×2 (06:33→17:51)
[2021-07-28] MEDS: hydrOXYzine PAMOATE 25 MG CAPSULE (FP) PO SCH ×4 (06:33→18:09)
[2021-07-28] MEDS: NICOTINE 14 MG/24 HOURS TOPICAL PATCH TD SCH ×2 (11:18→11:27)
[2021-07-28] MEDS: buPROPion HCL 75 MG TABLET PO SCH (11:19)
[2021-07-28] MEDS: PRENATAL VITAMINS W/ FOLIC ACID TABLET (FP) PO SCH (11:19)
[2021-07-28 18:23] VITALS: BP 114/66; PULSE 116; TEMP 97.5
[2021-07-29] MEDS ORDERED: chlordiazePOXIDE HCL 10 MG CAPSULE PO ONE (05:00)
== END 2021-07-28 18:54 | disposition home or self-care (01) | DRG 774 ==
LOC: YASAS 12:00 → Y6N 13:03
PROVIDERS: ADMIT Allergy & Immunology; ATTEND Allergy & Immunology
PROC: HZ2ZZZZ Detoxification Services for Substance Abuse Treatment (ICD-10-PCS; principal; 2021-07-24)
DX: F10.230 Alcohol dependence with withdrawal, uncomplicated (principal); F14.20 Cocaine dependence, uncomplicated; F17.210 Nicotine dependence, cigarettes, uncomplicated; F19.24 Other psychoactive substance dependence with psychoactive substance-induced mood disorder; F41.9 Anxiety disorder, unspecified; F32.A Depression, unspecified; U07.1 COVID-19; J45.909 Unspecified asthma, uncomplicated; K21.9 Gastro-esophageal reflux disease without esophagitis; L20.9 Atopic dermatitis, unspecified; R74.8 Abnormal levels of other serum enzymes
CPT/HCPCS: 36415; 80053; 85027; 86780; C9803; U0003; U0005

== ENCOUNTER 2021-09-06 13:15 | Inpatient (IN) | payer OTHER ==
[2021-09-06] MEDS ORDERED: chlordiazePOXIDE HCL 25 MG CAPSULE PO PRN (14:24)
[2021-09-06] MEDS ORDERED: BISMUTH SUBSALICYLATE 262 MG/15 ML BTL PO PRN (14:24)
[2021-09-06] MEDS ORDERED: MAGNESIUM CITRATE 300 ML BOTTLE PO PRN (14:24)
[2021-09-06] MEDS ORDERED: METHOCARBAMOL 500 MG TABLET PO PRN (14:24)
[2021-09-06] MEDS ORDERED: ONDANSETRON *ODT* 4 MG TABLET SL PRN (14:24)
[2021-09-06] MEDS ORDERED: MAGNESIUM HYDROX 2400MG/30ML ORAL SUSPENSION 30 ML CUP PO PRN (14:24)
[2021-09-06] MEDS ORDERED: NICOTINE 10 MG CARTRIDGE (INHALER) IH PRN (14:24)
[2021-09-06] MEDS ORDERED: MAG HYDROX/AL HYDROX/SIMETH 30 ML UNIT-DOSE CUP PO PRN (14:24)
[2021-09-06] MEDS ORDERED: LOPERAMIDE HCL 2 MG CAPSULE PO PRN (14:24)
[2021-09-06] MEDS ORDERED: ACETAMINOPHEN 325 MG TABLET (FP) PO PRN ×2 (14:24)
[2021-09-06] MEDS ORDERED: MENTHOL/PHENOL 1 EACH UD MM PRN (14:24)
[2021-09-06] MEDS ORDERED: cloNIDine HCL 0.1 MG TABLET PO PRN (14:27)
[2021-09-06 14:43] VITALS: BMI 34.6
[2021-09-06] MEDS: hydrOXYzine PAMOATE 25 MG CAPSULE (FP) PO SCH ×2 (17:51→22:52)
[2021-09-06] MEDS: chlordiazePOXIDE HCL 25 MG CAPSULE PO SCH ×2 (17:51→22:52)
[2021-09-06] MEDS: MELATONIN 5 MG TABLETS PO SCH (22:52)
[2021-09-06] MEDS: THIAMINE HCL 100 MG TABLET (FP) PO SCH (22:52)
[2021-09-07] MEDS: chlordiazePOXIDE HCL 25 MG CAPSULE PO SCH ×4 (06:12→22:31)
[2021-09-07] MEDS: hydrOXYzine PAMOATE 25 MG CAPSULE (FP) PO SCH ×5 (06:12→22:33)
[2021-09-07] MEDS: PRENATAL VITAMINS W/ FOLIC ACID TABLET (FP) PO SCH (11:05)
[2021-09-07 12:53] LABS: HEMATOCRIT 46.2 % (35.4-49); HEMOGLOBIN 15.6 GM/dL (11.7-16.9); MCH 30.7 pg (25.7-33.7); MCHC 33.8 g/dl (32.0-35.9); MEAN CELL VOLUME 90.8 fl (80-96); MEAN PLT VOLUME 9.8 fl (7.5-11.1); PLATELET COUNT 165 10^3/uL (134-434); RBC 5.09 M/mm3 (4.00-5.60); RDW 13.4 % (11.9-15.9); WHITE BLOOD COUNT 5.4 K/mm3 (4.0-10.0)
[2021-09-07 13:00] LABS: CALCIUM 8.4 mg/dL (8.5-10.1)
[2021-09-07 13:01] LABS: ALBUMIN 3.2 g/dl (3.4-5.0); BLOOD UREA NITROGEN 9.9 mg/dL (7-18)
[2021-09-07 13:06] LABS: BILIRUBIN,TOTAL 0.6 mg/dL (0.2-1); TOT PROT 6.1 g/dl (6.4-8.2)
[2021-09-07] MEDS: IBUPROFEN 400 MG TABLET (FP) PO PRN (17:17)
[2021-09-07] MEDS: MELATONIN 5 MG TABLETS PO SCH (22:31)
[2021-09-07] MEDS: THIAMINE HCL 100 MG TABLET (FP) PO SCH (22:31)
[2021-09-08] MEDS: chlordiazePOXIDE HCL 25 MG CAPSULE PO SCH ×4 (06:04→22:26)
[2021-09-08] MEDS: hydrOXYzine PAMOATE 25 MG CAPSULE (FP) PO SCH ×5 (06:04→22:26)
[2021-09-08] MEDS: PRENATAL VITAMINS W/ FOLIC ACID TABLET (FP) PO SCH (10:46)
[2021-09-08 12:07] LABS: SARS-CoV-2 NAA Not Detected (Not Detected)
[2021-09-08] MEDS: THIAMINE HCL 100 MG TABLET (FP) PO SCH (22:26)
[2021-09-08] MEDS: MELATONIN 5 MG TABLETS PO SCH (22:26)
[2021-09-09] MEDS ORDERED: chlordiazePOXIDE HCL 10 MG CAPSULE PO PRN
[2021-09-09] MEDS: hydrOXYzine PAMOATE 25 MG CAPSULE (FP) PO SCH ×5 (06:33→22:29)
[2021-09-09] MEDS: chlordiazePOXIDE HCL 10 MG CAPSULE PO SCH ×4 (06:34→22:30)
[2021-09-09] MEDS: PRENATAL VITAMINS W/ FOLIC ACID TABLET (FP) PO SCH (10:31)
[2021-09-09] MEDS: IBUPROFEN 400 MG TABLET (FP) PO PRN (18:30)
[2021-09-09] MEDS: THIAMINE HCL 100 MG TABLET (FP) PO SCH (22:29)
[2021-09-09] MEDS: MELATONIN 5 MG TABLETS PO SCH (22:29)
[2021-09-10] MEDS ORDERED: chlordiazePOXIDE HCL 10 MG CAPSULE PO SCH (05:00)
[2021-09-10] MEDS: hydrOXYzine PAMOATE 25 MG CAPSULE (FP) PO SCH ×2 (05:56→10:28)
[2021-09-10 09:47] VITALS: BP 101/60; PULSE 99; TEMP 97.3
[2021-09-10] MEDS: PRENATAL VITAMINS W/ FOLIC ACID TABLET (FP) PO SCH (10:28)
[2021-09-11] MEDS ORDERED: chlordiazePOXIDE HCL 10 MG CAPSULE PO ONE (05:00)
== END 2021-09-10 12:20 | disposition home or self-care (01) | DRG 774 ==
LOC: YASAS 13:15 → Y6N 15:01
PROVIDERS: ADMIT Allergy & Immunology; ATTEND Allergy & Immunology
PROC: HZ2ZZZZ Detoxification Services for Substance Abuse Treatment (ICD-10-PCS; principal; 2021-09-06)
DX: F10.230 Alcohol dependence with withdrawal, uncomplicated (principal); F14.20 Cocaine dependence, uncomplicated; F17.210 Nicotine dependence, cigarettes, uncomplicated; F32.A Depression, unspecified; J45.909 Unspecified asthma, uncomplicated; K21.9 Gastro-esophageal reflux disease without esophagitis; L20.9 Atopic dermatitis, unspecified; Z59.01 Sheltered homelessness
CPT/HCPCS: 36415; 80053; 85027; 86780; C9803; U0003; U0005

== ENCOUNTER 2021-10-19 09:10 | Inpatient (IN) | payer OTHER ==
[2021-10-19] MEDS ORDERED: LOPERAMIDE HCL 2 MG CAPSULE PO PRN (10:50)
[2021-10-19] MEDS ORDERED: ACETAMINOPHEN 325 MG TABLET (FP) PO PRN ×2 (10:50)
[2021-10-19] MEDS ORDERED: METHOCARBAMOL 500 MG TABLET PO PRN (10:50)
[2021-10-19] MEDS ORDERED: DICYCLOMINE HCL 10 MG CAPSULE PO PRN (10:50)
[2021-10-19] MEDS ORDERED: MAG HYDROX/AL HYDROX/SIMETH 30 ML UNIT-DOSE CUP PO PRN (10:50)
[2021-10-19] MEDS ORDERED: BENZOCAINE/MENTHOL (CHLORASEPTIC ) LOZENGE MM PRN (10:50)
[2021-10-19] MEDS ORDERED: ONDANSETRON *ODT* 4 MG TABLET SL PRN (10:50)
[2021-10-19] MEDS ORDERED: MAGNESIUM HYDROX 2400MG/30ML ORAL SUSPENSION 30 ML CUP PO PRN (10:50)
[2021-10-19] MEDS ORDERED: NICOTINE 10 MG CARTRIDGE (INHALER) IH PRN (10:50)
[2021-10-19] MEDS ORDERED: MAGNESIUM CITRATE 300 ML BOTTLE PO PRN (10:50)
[2021-10-19] MEDS ORDERED: BISMUTH SUBSALICYLATE 262 MG/15 ML BTL PO PRN (10:50)
[2021-10-19] MEDS ORDERED: chlordiazePOXIDE HCL 25 MG CAPSULE PO PRN (10:50)
[2021-10-19 14:46] LABS: HEMATOCRIT 39.2 % (35.4-49); HEMOGLOBIN 13.5 GM/dL (11.7-16.9); MCH 30.6 pg (25.7-33.7); MCHC 34.6 g/dl (32.0-35.9); MEAN CELL VOLUME 88.6 fl (80-96); MEAN PLT VOLUME 9.6 fl (7.5-11.1); PLATELET COUNT 209 10^3/uL (134-434); RBC 4.43 M/mm3 (4.00-5.60); RDW 13.6 % (11.9-15.9)
[2021-10-19 14:58] LABS: CALCIUM 8.7 mg/dL (8.5-10.1)
[2021-10-19 14:59] LABS: ALBUMIN 3.7 g/dl (3.4-5.0); BLOOD UREA NITROGEN 22.7 mg/dL (7-18)
[2021-10-19 15:01] LABS: CREATININE 1.1 mg/dL (0.55-1.3)
[2021-10-19 15:02] LABS: BILIRUBIN,TOTAL 0.5 mg/dL (0.2-1); TOT PROT 6.7 g/dl (6.4-8.2)
[2021-10-19 15:49] VITALS: BMI 33.7
[2021-10-19] MEDS: chlordiazePOXIDE HCL 25 MG CAPSULE PO SCH ×3 (17:32→22:27)
[2021-10-19] MEDS: hydrOXYzine PAMOATE 25 MG CAPSULE (FP) PO SCH ×3 (17:33→23:09)
[2021-10-19] MEDS: PRENATAL VITAMINS W/ FOLIC ACID TABLET (FP) PO SCH (17:35)
[2021-10-19] MEDS: NICOTINE 14 MG/24 HOURS TOPICAL PATCH TD SCH (19:02)
[2021-10-19] MEDS: THIAMINE HCL 100 MG TABLET (FP) PO SCH (22:27)
[2021-10-19] MEDS: MELATONIN 5 MG TABLETS PO SCH (22:27)
[2021-10-19] MEDS: APIXABAN 5 MG TABLET PO SCH (22:27)
[2021-10-19] MEDS: IBUPROFEN 400 MG TABLET (FP) PO PRN (22:28)
[2021-10-20] MEDS: chlordiazePOXIDE HCL 25 MG CAPSULE PO SCH ×4 (05:19→22:08)
[2021-10-20] MEDS: hydrOXYzine PAMOATE 25 MG CAPSULE (FP) PO SCH ×5 (05:20→22:07)
[2021-10-20] MEDS: IBUPROFEN 400 MG TABLET (FP) PO PRN ×2 (05:21→18:18)
[2021-10-20] MEDS: PRENATAL VITAMINS W/ FOLIC ACID TABLET (FP) PO SCH (10:52)
[2021-10-20] MEDS: APIXABAN 5 MG TABLET PO SCH ×2 (10:52→22:08)
[2021-10-20] MEDS: NICOTINE 14 MG/24 HOURS TOPICAL PATCH TD SCH (10:54)
[2021-10-20] MEDS: THIAMINE HCL 100 MG TABLET (FP) PO SCH (22:09)
[2021-10-20] MEDS: MELATONIN 5 MG TABLETS PO SCH (22:09)
[2021-10-21] MEDS: chlordiazePOXIDE HCL 25 MG CAPSULE PO SCH ×4 (05:32→22:14)
[2021-10-21] MEDS: hydrOXYzine PAMOATE 25 MG CAPSULE (FP) PO SCH ×5 (05:32→22:15)
[2021-10-21] MEDS: NICOTINE 14 MG/24 HOURS TOPICAL PATCH TD SCH (10:26)
[2021-10-21] MEDS: APIXABAN 5 MG TABLET PO SCH ×2 (10:26→22:14)
[2021-10-21] MEDS: PRENATAL VITAMINS W/ FOLIC ACID TABLET (FP) PO SCH (10:26)
[2021-10-21] MEDS: MELATONIN 5 MG TABLETS PO SCH (22:14)
[2021-10-21] MEDS: THIAMINE HCL 100 MG TABLET (FP) PO SCH (22:14)
[2021-10-22] MEDS ORDERED: chlordiazePOXIDE HCL 10 MG CAPSULE PO PRN
[2021-10-22 00:10] LABS: SARS-CoV-2 NAA Not Detected (Not Detected)
[2021-10-22] MEDS: hydrOXYzine PAMOATE 25 MG CAPSULE (FP) PO SCH ×5 (05:39→22:30)
[2021-10-22] MEDS: chlordiazePOXIDE HCL 10 MG CAPSULE PO SCH ×4 (05:39→22:32)
[2021-10-22] MEDS: APIXABAN 5 MG TABLET PO SCH ×2 (10:18→22:30)
[2021-10-22] MEDS: NICOTINE 14 MG/24 HOURS TOPICAL PATCH TD SCH (10:18)
[2021-10-22] MEDS: PRENATAL VITAMINS W/ FOLIC ACID TABLET (FP) PO SCH (10:18)
[2021-10-22] MEDS: THIAMINE HCL 100 MG TABLET (FP) PO SCH (22:30)
[2021-10-22] MEDS: MELATONIN 5 MG TABLETS PO SCH (22:30)
[2021-10-23] MEDS: chlordiazePOXIDE HCL 10 MG CAPSULE PO SCH ×2 (06:07→17:46)
[2021-10-23] MEDS: hydrOXYzine PAMOATE 25 MG CAPSULE (FP) PO SCH ×5 (06:11→22:07)
[2021-10-23] MEDS: APIXABAN 5 MG TABLET PO SCH ×2 (10:18→22:07)
[2021-10-23] MEDS: PRENATAL VITAMINS W/ FOLIC ACID TABLET (FP) PO SCH (10:18)
[2021-10-23] MEDS: NICOTINE 14 MG/24 HOURS TOPICAL PATCH TD SCH (10:19)
[2021-10-23] MEDS: THIAMINE HCL 100 MG TABLET (FP) PO SCH (22:07)
[2021-10-23] MEDS: MELATONIN 5 MG TABLETS PO SCH (22:07)
[2021-10-23] MEDS: IBUPROFEN 400 MG TABLET (FP) PO PRN (22:08)
[2021-10-24] MEDS ORDERED: chlordiazePOXIDE HCL 10 MG CAPSULE PO ONE (05:00)
[2021-10-24] MEDS: hydrOXYzine PAMOATE 25 MG CAPSULE (FP) PO SCH ×2 (05:42→10:58)
[2021-10-24 09:20] VITALS: BP 107/51; PULSE 84; TEMP 97
[2021-10-24] MEDS: APIXABAN 5 MG TABLET PO SCH (10:57)
[2021-10-24] MEDS: PRENATAL VITAMINS W/ FOLIC ACID TABLET (FP) PO SCH (10:57)
[2021-10-24] MEDS: NICOTINE 14 MG/24 HOURS TOPICAL PATCH TD SCH (10:57)
== END 2021-10-24 11:15 | disposition home or self-care (01) | DRG 774 ==
LOC: YASAS 09:10 → Y6N 13:25
PROVIDERS: ADMIT Allergy & Immunology; ATTEND Allergy & Immunology
PROC: HZ2ZZZZ Detoxification Services for Substance Abuse Treatment (ICD-10-PCS; principal; 2021-10-19)
DX: F10.230 Alcohol dependence with withdrawal, uncomplicated (principal); F14.10 Cocaine abuse, uncomplicated; F17.210 Nicotine dependence, cigarettes, uncomplicated; F41.9 Anxiety disorder, unspecified; F32.A Depression, unspecified; J45.909 Unspecified asthma, uncomplicated; K21.9 Gastro-esophageal reflux disease without esophagitis; L20.9 Atopic dermatitis, unspecified; Z86.711 Personal history of pulmonary embolism; Z79.01 Long term (current) use of anticoagulants
CPT/HCPCS: 36415; 80053; 84520; 85027; 86780; C9803-CS; U0003; U0005